=== PATIENT | female | born 1950 | race Caucasian/White ===

== ENCOUNTER 2021-01-23 06:44 | Outpatient (RCR) | payer MEDICARE, SELFPAY ==
[2015-12-30 08:40] VITALS: BMI 29.7
[2021-01-23] MEDS: COVID-19 VACC, MRNA(PFIZER)/PF 30 MCG/0.3 ML SYRINGE IM (10:16)
[2021-02-13] MEDS: COVID-19 VACC, MRNA(PFIZER)/PF 30 MCG/0.3 ML SYRINGE IM (16:04)
== END 2021-01-23 23:59 ==
LOC: IMMUN 06:44
PROVIDERS: PCP Family Medicine; Visit Provider Family Medicine
DX: Z23 Encounter for immunization (principal)
CPT/HCPCS: 0001A; 0002A; 91300

== ENCOUNTER 2022-09-15 15:30 | Outpatient (RCR) | payer MEDICARE, SELFPAY ==
--- NOTE | 2022-03-10 12:04 | HP.PTEVAL ---
Patient's Visit Information DOM BOSWELL is a 71 year old F referred to Physical Therapy by Dr. Isaac Monroe MD with a diagnosis of OA MULTIPLE SITES. Date of Evaluation: 03/10/22 Physical Therapist: Minna Turner PT, Cert MDT - Visit Plan Frequency: 2-3x /Week Duration: 4-6 Weeks Plan: AQUATIC THERAPY FOR PAIN RELIEF, POSTURE CORRECTION/STRENGTHENING, INSTRUCTION IN APPROPRIATE BODY MECHANICS AND ACTIVITY MODIFICATIONS. DLS STARTING WITH A NEUTRAL SPINE PROGRESSING ROM TOLERATED. PIA LE ROM, STRETCHING AND STRENGTHENING. HEP INSTRUCTION. - Subjective Work/Leisure: RETIRED. Disability: NO. Present symptoms: PIA ANKLE PAIN, LEFT KNEE PAIN, RIGHT HIP PAIN AND LOW BACK PAIN. PIA TOE NUMBNESS. Present since: 3-4 YEARS. Pain Scale: WORST 10/10 BRIEF LBP, LEAST 1/10. Currently: 01/01. Commenced as a result of: OA. Worse: STANDING, SITTING SOMETIMES, WALKING SHARP KNEE PAIN - I DON'T MY LEFT KNEE, THE DAY PROGRESSES. Better: SOMETIMES NOTHING, SOMETIMES SITTING HELPS OR CHANGE OF POSITION. Disturbed sleep: YES. Previous history/Previous treatment: NO SURGERY. LEFT KNEE INJECTION X 2 - DIDN'T HELP. 1-2 TREATMENTS FROM [facility] YEARS AGO - DIDN'T HELP. NO PT. Treatment this episode: PT CONSULT ORDER. COUNSELING ORDER. ORTHO CONSULT FOR KNEE. CELEBREX. GABAPENTEN. Coughing/sneezing/straining: NEGATIVE. Gait: TIME AND DISTANCE LIMITED DUE TO PAIN AND STAMINA. SOMETIMES WALKS WITH L LEG LOCKED STRAIGHT BECAUSE SHE DOESN'T TRUST IT. Difficulty initiating urination: BLADDER LEAKAGE. DENIES BOWEL DYSFUNCTION. Accidents: FELL IN NOV 2021 IN SNOW. LOST BALANCE TO THE RIGHT AND FOUGHT TO RECOVER BUT COULDN'T AND FELL IN THE SNOW. NO INJURIES BUT NEIGHBORS HAD TO HELP HER UP. FALLS ABOUT ONCE A MONTH. Unexplained weight loss: NO. Imaging: NONE. PMH/Recent major surgery: NIDDM, OA, HTN, HYPOTHYROIDISM, HIGH CHOLESTEROL. BREAST CANCER 2006 TREATED WITH LUMPECTOMY AND RADIATION THERAPY. 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 HAS BEEN IN BED AND SITTING TOO MUCH SINCE HE PAST. OTHER: I HATE WATER BUT I CAN DO WATER EXERCISE IF I NEED TO. - Objective Sitting/Standing Posture: POOR. FH. RS'S. REDUCED LORDOSIS. NO RELEVENT LATERAL SHIFT. INCREASED KYPHOSIS. Active Correction of posture: BETTER. Other Observations: INDEP GAIT INTO PT WITHOUT ANY ASSISTIVE DEVICES LIMPING ON L LE. DECREASED CADANCE. INCREASED TRUNK FLEXION. Sensory deficit: PIA LE LIGHT TOUCH SENSATION GROSSLY INTACT AND SYMMETRICAL - FEET NT. ROM deficit: TIGHT PIA LE HS'S AND GASTROC SOLEUS COMPLEX'S. RIGHT KNEE EXT -20 DEG, LEFT KNEE EXT -15 DEG. PIA KNEE FLEXION TO 130 DEG. PIA HIP FLEXION TO 110 DEG IN LYING. PIA HIP ROM INTO EXTENSION, IR AND ER IS SYMMETRICAL. Motor deficit: PIA LE'S GROSSLY 5/5 WITH MMT'ING EXCEPT HIPS 4-/5. Dural Signs: NEGATIVE PIA LE'S. Lumbar mvmt loss: flex - MIN. ext - MOD. R SG - MOD. L SG - MOD. Core strength: POOR. Palpation: NO ACUTE TENDERNESS OF LOW BACK, PELVIC OR HIP REGIONS. - Balance/Special Test Scores Lower Extremity Functional Score: 29 TUG Test Time Seconds: 15.28 30 Second Chair Rise Test Seconds: 7 - Goals Goal 1:: DECREASE C/O BACK AND PIA LE PAIN Goal Time Frame: 4-6 Weeks Goal 2:: IMPROVE STAIR CLIMBING, STANDING, WALKING AND ADL FUNCTION Goal Time Frame: 4-6 Weeks Goal 3:: PATIENT WILL BE INDEP WITH A HEP FOR CONTINUED IMRPOVEMENT ONCE FORMAL PHYSICAL THERAPY CONCLUDES Goal Time Frame: 4-6 Weeks Goal 4:: PATIENT WILL COMPLETE TUG IN < 10 SECS TO DEMONSTRATE IMPROVED GAIT STABILITY Goal 5:: PATIENT WILL COMPLETE 10 STANDS IN 30 SECS TO DEMONSTRATE IMPROVED FUNCTIONAL STRENGTH - Anticipated Interventions Patient/Client Instruction: Educate patient on: Condition, Plan of Care, Risk Factors For the Purpose of:: To improve self management Therapeutic Exercise to Include: Strength training, Body mechanics, Postural training, Flexibilty training, Gait and locomotor training, Neuromotor development, In an aquatic setting, Dynamic Lumbar Stabilization, Scapular Strength/Stabilization For the Purpose of:: To decrease pain, To improve muscle performance and motor function, To increase tolerance to activity/condition/position, To improve ability of physical actions for home/community/work/leisure, To improve gait and locomotor functions Thank you for the opportunity to evaluate your patient. For Medicare and Medicare HMO plans, please review the plan of care and approve it. It will need to be FAXED BACK to us at [phone] for Medicare purposes. For Medicare only, by signing this I certify the plan of care. Please let me know if there are questions or concerns regarding this plan of care. Physician Signature: Date:
--- NOTE | 2022-04-08 11:41 | HP.PTREVAL_ITS ---
Dr. Isaac Holden MD, It has been my pleasure to treat DOM BOSWELL over the last 10 visits for OA MULTIPLE SITES. Please see the progress note below for an update on the physical therapy plan of care! Subjective: PATIENT REPORTS SHE IS GETTING BETTER. ABLE TO UNDERSTAND HOW TO USE HER ABDOMINALS BETTER SINCE STARTING POOL THERAPY. ALSO REPORTS LEFT FOOT ISN'T TURNING OUT MUCH AND IT IS EASIER TO AVOID TURNING IT OUT. PATIENT REPORTS SHE CAN GO UP AND DOWN HER STEPS AT HOME (WHICH SHE DOES ABOUT ONCE A WEEK) BETTER. REPORTS IT IS STILL DIFFICULT BUT BETTER SINCE STARTING AQUATIC THERAPY. STATES SHE WAS DOING BETTER THAN BEFORE THE FALL LAST WEDNESDAY. ALSO REPORTS HELPING A NEIGHBOR MOVE, MOWING, TRYING STEPS IN THE POOL AND OTHER A CTIVITIES THAT LEAD TO 7-8/10 BACK PAIN LAST WEDNESDAY AND WEDNESDAY. PATIENT REPORTS FOLLOW UP WITH DR. HOLDEN LAST WEEK AFTER FALL. SHE REPORTS HE INCREASED HER MEDICINE THAT HELPS HER FALL ASLEEP AND RECOMMENDED CONTINUED PT. (FELL TUMBLED ON THE AND SAW DR. HOLDEN ON THE ). Objective/Function: PATIENT WAS SEEN TODAY FOR RE-ASSESSMENT OF PROGRESS TOWARD THE SET PT GOALS AND THE NEED FOR FURTHER PHYSICAL THERAPY VS READINESS FOR DISCHARGE. PATIENT IS IMPOVING SLOWLY. SHE CONTINUES TO HAVE POOR CORE STRENGTH EFFECTING LE FUNCTION BUT SHE IS GETTING STRONGER AND MAKING PROGRESS TOWARD BECOMING INDEP WITH A WATER EX PROGRAM HOWEVER CONTINUES TO REQUIRE SIGNIFCANT THERAPIST CUEING. SHE IS A GOOD CANDIDATE TO CONTINUE SKILLED AQUATIC THERAPY AND SHE IS AGREEABLE. UPON EXAM TODAY: PATIENT DEMO'S INDEP GAIT INTO PT WITHOUT ANY ASSISTIVE DEVICES MILDLY LIMPING ON L LE. DECREASED CADANCE. INCREASED TRUNK FLEXION. PATIENT IS ABLE TO TRANSFER FROM SIT TO STAND WITH ONE UE ASSIST NOW COMPARED TO TWO UE'S AT INITIAL EVAL BUT IT IS DIFFICULT. Sensory deficit: PIA LE LIGHT TOUCH SENSATION GROSSLY INTACT AND SYMMETRICAL - FEET NT. Motor deficit: PIA LE'S GROSSLY 5/5 WITH MMT'ING EXCEPT HIPS 4-/5. Dural Signs: NEGATIVE PIA LE'S. Lumbar mvmt loss: flex - MIN. ext - MOD. R SG - MOD. L SG - MOD. PATIENT C/O INCREASED LBP DURING LUMBAR ROM TESTING ALL PLANES BUT RESOLVED WHEN STOPPED. Core strength: POOR. Palpation: NO ACUTE TENDERNESS OF LOW BACK, KNEE, PELVIC OR HIP REGIONS. Plan Plan: CONTINUE AQUATIC THERAPY 2X'S A WK X 10 MORE VISITS FOR PAIN RELIEF, POSTURE CORRECTION/STRENGTHENING, INSTRUCTION IN APPROPRIATE BODY MECHANICS AND ACTIVITY MODIFICATIONS. DLS STARTING WITH A NEUTRAL SPINE PROGRESSING ROM TOLERATED. PIA LE ROM, STRETCHING AND STRENGTHENING. HEP INSTRUCTION. Balance/Gait/Functional tests - Balance/Special Test Scores Oswestry Low Back Score: 20 Lower Extremity Functional Score: 29 TUG Test Time Seconds: 15.28 Tug Test: 20-30sec.=variable mobility 30 Second Chair Rise Test Seconds: 7 Goals Goal 1:: DECREASE C/O BACK AND PIA LE PAIN Goal Time Frame: 4-6 Weeks Goal Progress: Progressing Goal 2:: IMPROVE STAIR CLIMBING, STANDING, WALKING AND ADL FUNCTION Goal Time Frame: 4-6 Weeks Goal Progress: Progressing Goal 3:: PATIENT WILL BE INDEP WITH A HEP FOR CONTINUED IMRPOVEMENT ONCE FORMAL PHYSICAL THERAPY CONCLUDES Goal Time Frame: 4-6 Weeks Goal Progress: Progressing Goal 4:: PATIENT WILL COMPLETE TUG IN < 10 SECS TO DEMONSTRATE IMPROVED GAIT STABILITY Goal 5:: PATIENT WILL COMPLETE 10 STANDS IN 30 SECS TO DEMONSTRATE IMPROVED FUNCTIONAL STRENGTH Anticipated Interventions Patient/Client Instruction: Educate patient on: Condition, Plan of Care, Risk Factors For the Purpose of:: To improve self management Therapeutic Exercise to Include: Strength training, Body mechanics, Postural training, Flexibilty training, Gait and locomotor training, Neuromotor development, In an aquatic setting, Dynamic Lumbar Stabilization, Scapular Strength/Stabilization For the Purpose of:: To decrease pain, To improve muscle performance and motor function, To increase tolerance to activity/condition/position, To improve ability of physical actions for home/community/work/leisure, To improve gait and locomotor functions Please do not hesitate to contact me at [phone] by phone or Fax: if you have questions or concerns regarding this new plan of care! Sincerely, Minna Turner, PT, Cert MDT
--- NOTE | 2022-05-29 14:57 | HP.PTREVAL ---
Dr. Isaac Monroe MD, It has been my pleasure to treat DOM BOSWELL over the last 20 visits for OA MULTIPLE SITES. Please see the progress note below for an update on the physical therapy plan of care! Subjective: PATIENT REPORTS SHE IS GETTING BETTER AND FEELS LIKE SHE NEEDS MORE THERAPY. STANDING UP FROM A CHAIR AND GOING UP STAIRS IS STILL CHALLENGING. REPORTS DOING TOO MUCH WALKING, LIFTING AND STOOPING TO CLEAN BASEMENT OUT FOR NEW FURNITURE YESTERDAY. PATIENT REPORTS SHE IS ABLE TO GO UP STEPS BETTER - NOT DEPENDENT ON HR. WHEN I'M LOSING BALANCE I CAN CORRECT BETTER NOW AND I DIDN'T HAVE THAT ABILITY BEFORE. SHE REPORTS REACHING OVER AND GETTING THINGS IS BETTER BUT STANDING HAS NOT IMPROVED MUCH. REPORTS IT IS STILL HARD FOR HER TO GET CORRECT POSTURE IN THE POOL WITH EX'S. Objective/Function: PATIENT WAS SEEN TODAY FOR RE-ASSESSMENT OF PROGRESS TOWARD THE SET PT GOALS AND THE NEED FOR FURTHER PHYSICAL THERAPY VS READINESS FOR DISCHARGE. PATIENT HAS MADE SIGNIFICANT PROGRESS SINCE LAST RE-CHECK BUT IS NOT INDEP WITH PROPER EX TECHNIQUE YET ALTHOUGH BECOMING MORE CONFIDENT. SHE MAY ALSO BENEFIT FROM/TOLERATE CONTINUED SKILLED PT FOR FURTHER EX PROGRESSION SHE STARTS TO TRANSITION TO INDEP EX. SHE CONTINUES TO HAVE POOR CORE STRENGTH EFFECTING LE FUNCTION BUT SHE IS GETTING STRONGER AND MAKING PROGRESS TOWARD BECOMING INDEP WITH A WATER EX PROGRAM SHE IS AGREEABLE. UPON EXAM TODAY: PATIENT DEMO'S INDEP GAIT INTO PT WITHOUT ANY ASSISTIVE DEVICES MILDLY LIMPING ON L LE. DECREASED CADANCE. INCREASED TRUNK FLEXION. PATIENT IS ABLE TO TRANSFER FROM SIT TO STAND WITHOUT UE ASSIST NOW COMPARED TO TWO UE'S AT INITIAL EVAL AND ONE UE AT LAST RE-CHECK. Sensory deficit: PIA LE LIGHT TOUCH SENSATION GROSSLY INTACT AND SYMMETRICAL - FEET NT. Motor deficit: PIA LE'S GROSSLY 5/5 WITH MMT'ING EXCEPT HIPS 4/5. Dural Signs: NEGATIVE PIA LE'S. Lumbar mvmt loss: flex - MIN. ext - MOD. R SG - MOD. L SG - MOD. PATIENT REPORTS INCREASED LBP WITH LUMBAR PIA SG TESTING BUT NOT FLEX AND EXTENSION. Core strength: POOR. Palpation: NO ACUTE TENDERNESS OF LOW BACK, KNEE, PELVIC OR HIP REGIONS. [ End ] Plan Plan: CONTINUE AQUATIC THERAPY 2X'S A WEEK X 4 WKS WITH PATIENT STARTING ONE TIME A WEEK INDEP'LY. PATIENT IS AGREEABLE. Balance/Gait/Functional tests - Balance/Special Test Scores Oswestry Low Back Score: 19 Lower Extremity Functional Score: 31 TUG Test Time Seconds: 11.27 Tug Test: 20-30sec.=variable mobility 30 Second Chair Rise Test Seconds: 6 Goals Goal 1:: DECREASE C/O BACK AND PIA LE PAIN Goal Time Frame: 4-6 Weeks Goal Progress: Progressing Goal 2:: IMPROVE STAIR CLIMBING, STANDING, WALKING AND ADL FUNCTION Goal Time Frame: 4-6 Weeks Goal Progress: Progressing Goal 3:: PATIENT WILL BE INDEP WITH A HEP FOR CONTINUED IMRPOVEMENT ONCE FORMAL PHYSICAL THERAPY CONCLUDES Goal Time Frame: 4-6 Weeks Goal Progress: Progressing Goal 4:: PATIENT WILL COMPLETE TUG IN < 10 SECS TO DEMONSTRATE IMPROVED GAIT STABILITY Goal Progress: Progressing Goal 5:: PATIENT WILL COMPLETE 10 STANDS IN 30 SECS TO DEMONSTRATE IMPROVED FUNCTIONAL STRENGTH Goal Progress: Progressing Anticipated Interventions Patient/Client Instruction: Educate patient on: Condition, Plan of Care, Risk Factors For the Purpose of:: To improve self management Therapeutic Exercise to Include: Strength training, Body mechanics, Postural training, Flexibilty training, Gait and locomotor training, Neuromotor development, In an aquatic setting, Dynamic Lumbar Stabilization, Scapular Strength/Stabilization For the Purpose of:: To decrease pain, To improve muscle performance and motor function, To increase tolerance to activity/condition/position, To improve ability of physical actions for home/community/work/leisure, To improve gait and locomotor functions Please do not hesitate to contact me at [phone] by phone or if you have questions or concerns regarding this new plan of care! Sincerely, Minna Turner, PT, Cert MDT
--- NOTE | 2022-07-09 13:59 | HP.PTREVAL_ITS ---
Dr. Isaac Mnoroe MD, It has been my pleasure to treat DOM BOSWELL over the last 28 visits for OA MULTIPLE SITES. Please see the progress note below for an update on the physical therapy plan of care! Subjective: PATIENT REPORTS SHE FELL WEDNESDAY CLEANING THE BATHROOM. DIFFICULTY GETTING UP BUT EVENTUALLY GOT HERSELF UP. DENIES NEED FOR MEDICAL EXAM. DENIES SERIOUS INJURY. STATES SHE IS JUST BRUISED. PATIENT REPORTS SHE HAS COME TWO TIMES ON HER OWN TO WATER EX BUT SHE IS NOT SURE SHE WILL CONTINUE. PATIENT REPORTS GETTING UP FROM A CHAIR HAS DEFINATELY IMPROVED SINCE STARTING PT. Objective/Function: PATIENT WAS SEEN TODAY FOR RE-ASSESSMENT OF PROGRESS TOWARD THE SET PT GOALS AND THE NEED FOR FURTHER PHYSICAL THERAPY VS READINESS FOR DISCHARGE. PATIENT IS A GOOD CANDIDATE TO CONTINUE AQUATIC THERAPY AND SHE IS AGREEABLE. SHE HAD A SET BACK WITH HER FALL BUT TESTED BETTER WITH TUG TIME AND STS TEST COMPARED TO INITIAL EVAL. UPON EXAM TODAY: PATIENT DEMO'S INDEP GAIT INTO PT WITHOUT ANY ASSISTIVE DEVICES LIMPING ON L LE. DECREASED CADANCE. INCREASED TRUNK FLEXION. Motor deficit: PIA LE'S GROSSLY 5/5 WITH MMT'ING EXCEPT HIPS 4/5. ROM: PIA KNEE ROM -5 DEG EXT TO 125 DEG FLEXION WITH ERP LLE. Dural Signs: NEGATIVE PIA LE'S. Lumbar mvmt loss: flex - NIL. ext - MOD. R SG - MOD. L SG - MOD. PATIENT REPORTS. Core strength: POOR. Palpation: NO ACUTE TENDERNESS OF L KNEE. ALSO DENIES TENDERNESS WITH BACK AND HIP PALPATION. [ End ] Plan Plan: CONTINUE AQUATIC THERAPY 2X'S A WEEK X 4 WKS WITH PATIENT STARTING ONE TIME A WEEK INDEP'LY. PATIENT IS AGREEABLE. Balance/Gait/Functional tests - Balance/Special Test Scores Oswestry Low Back Score: 22 Lower Extremity Functional Score: 33 TUG Test Time Seconds: 10.97 Tug Test: 20-30sec.=variable mobility 30 Second Chair Rise Test Seconds: 7 Goals Goal 1:: DECREASE C/O BACK AND PIA LE PAIN Goal Time Frame: 4-6 Weeks Goal Progress: Progressing Goal 2:: IMPROVE STAIR CLIMBING, STANDING, WALKING AND ADL FUNCTION Goal Time Frame: 4-6 Weeks Goal Progress: Progressing Goal 3:: PATIENT WILL BE INDEP WITH A HEP FOR CONTINUED IMRPOVEMENT ONCE FORMAL PHYSICAL THERAPY CONCLUDES Goal Time Frame: 4-6 Weeks Goal Progress: Progressing Goal 4:: PATIENT WILL COMPLETE TUG IN < 10 SECS TO DEMONSTRATE IMPROVED GAIT STABILITY Goal Progress: Progressing Goal 5:: PATIENT WILL COMPLETE 10 STANDS IN 30 SECS TO DEMONSTRATE IMPROVED FUN CTIONAL STRENGTH Goal Progress: Progressing Anticipated Interventions Patient/Client Instruction: Educate patient on: Condition, Plan of Care, Risk Factors For the Purpose of:: To improve self management Therapeutic Exercise to Include: Strength training, Body mechanics, Postural tra ining, Flexibilty training, Gait and locomotor training, Neuromotor development, In an aquatic setting, Dynamic Lumbar Stabilization, Scapular Strength/Stabilization For the Purpose of:: To decrease pain, To improve muscle performance and motor function, To increase tolerance to activity/condition/position, To improve ability of physical actions for home/community/work/leisure, To improve gait and locomotor functions Please do not hesitate to contact me at [phone] by phone or if you have questions or concerns regarding this new plan of care! Sincerely, Minna Turner, PT, Cert MDT
--- NOTE | 2022-08-27 14:09 | HP.PTREVAL ---
Dr. Isaac Monroe MD, It has been my pleasure to treat DOM BOSWELL over the last 38 visits for OA MULTIPLE SITES. Please see the progress note below for an update on the physical therapy plan of care! Subjective: PATIENT REPROTS THAT GOING UP AND DOWN STEPS IS MUCH BETTER. SHE REPROTS SHE CAN SOMETIMES GO UP STEP OVER STEP NOW WITH A HANDRAIL. CAN SOMETIMES GO UP ONE STEP AT A TIME WITHOUT ANY HANDRAIL. SHE REPORTS HER L KNEE PAIN AND RIGHT HIP PAIN ARE BETTER TOO. PATIENT REPORTS GENERAL ARM SORENESS FROM NEW EX'S LAST VISIT BUT NOT PAIN. MY BALANCE HAS DEFINATELY IMPROVED. Objective/Function: PATIENT WAS SEEN TODAY FOR RE-ASSESSMENT OF PROGRESS TOWARD THE SET PT GOALS AND THE NEED FOR FURTHER PHYSICAL THERAPY VS READINESS FOR DISCHARGE. PATIENT IS A GOOD CANDIDATE TO TRY TO PROGRESS TO LAND PT AT THIS TIME BASED ON PROGRESS MADE AND ROOM FOR FURTHER IMRPOVEMENT. PATIENT IS AGREEABLE. UPON EXAM TODAY: PATIENT DEMO'S INDEP GAIT INTO PT WITHOUT ANY ASSISTIVE DEVICES AND NO LIMP ON THE L LE TODAY. DECREASED CADANCE. INCREASED TRUNK FLEXION. Motor deficit: PIA LE'S GROSSLY 5/5. ROM: R KNEE ROM -5 DEG EXT TO 134 DEG FLEXION. L KNEE ROM -3 DEG EXT TO 135 DEG. Lumbar mvmt loss: flex - NIL. ext - MOD. R SG - MOD. L SG - MOD. PATIENT DENIES INCREASED LBP WITH LUMBAR ROM TESTING ALL PLANES TODAY. Core strength: POOR Plan Plan: TRANSITION TO LAND PT FOR POSTURE CORRECTION/STRENGTHENING, INSTRUCTION IN APPROPRIATE BODY MECHANICS AND ACTIVITY MODIFICATIONS. DLS STARTING WITH A NEUTRAL SPINE PROGRESSING ROM TOLERATED. PIA LE ROM, STRETCHING AND STRENGTHENING. HEP INSTRUCTION. Balance/Gait/Functional tests - Balance/Special Test Scores Oswestry Low Back Score: 18 Lower Extremity Functional Score: 43 TUG Test Time Seconds: 8.80 Tug Test: <10 sec.=free mobile 30 Second Chair Rise Test Seconds: 8 Goals Goal 1:: DECREASE C/O BACK AND PIA LE PAIN Goal Time Frame: 4-6 Weeks Goal Progress: Progressing Goal 2:: IMPROVE STAIR CLIMBING, STANDING, WALKING AND ADL FUNCTION Goal Time Frame: 4-6 Weeks Goal Progress: Progressing Goal 3:: PATIENT WILL BE INDEP WITH A HEP FOR CONTINUED IMRPOVEMENT ONCE FORMAL PHYSICAL THERAPY CONCLUDES Goal Time Frame: 4-6 Weeks Goal Progress: Progressing Goal 4:: PATIENT WILL COMPLETE TUG IN < 10 SECS TO DEMONSTRATE IMPROVED GAIT STABILITY Goal Progress: Progressing Goal 5:: PATIENT WILL COMPLETE 10 STANDS IN 30 SECS TO DEMONSTRATE IMPROVED FUNCTIONAL STRENGTH Goal Progress: Progressing Anticipated Interventions Patient/Client Instruction: Educate patient on: Condition, Plan of Care, Risk Factors For the Purpose of:: To improve self management Therapeutic Exercise to Include: Strength training, Body mechanics, Postural training, Flexibilty training, Gait and locomotor training, Neuromotor development, In an aquatic setting, Dynamic Lumbar Stabilization, Scapular Strength/Stabilization For the Purpose of:: To decrease pain, To improve muscle performance and motor function, To increase tolerance to activity/condition/position, To improve ability of physical actions for home/community/work/leisure, To improve gait and locomotor functions Please do not hesitate to contact me at [phone] by phone or if you have questions or concerns regarding this new plan of care! Sincerely, Minna Turner, PT, Cert MDT
== END 2022-09-15 19:00 | disposition home or self-care (01) ==
LOC: PT 15:30
PROVIDERS: PCP Family Medicine; Referring Provider Family Medicine; Visit Provider Family Medicine
DX: M15.9 Polyosteoarthritis, unspecified (principal)
CPT/HCPCS: 97110; 97113; 97162; 97164

== ENCOUNTER 2022-09-24 13:30 | Outpatient (RCR) | payer MEDICARE, SELFPAY ==
--- NOTE | 2022-09-24 14:13 | HP.PTDCSUM ---
It has been my pleasure to treat DOM BOSWELL referred by Dr. Isaac Monroe MD, with the diagnosis of for a total of 46 visit(s). Discharge Date: Please see the following information for a summary of their discharge status. Subjective: PATIENT REPORTS HER BALANCE IS BETTER. MY STRENGTH IN MY LEGS AND CORE IS DEFINATELY BETTER. STAIRS ARE BETTER. % Improvement: 80 Objective/Function: PATIENT WAS SEEN TODAY FOR RE-ASSESSMENT OF PROGRESS TOWARD THE SET PT GOALS AND THE NEED FOR FURTHER PHYSICAL THERAPY VS READINESS FOR DISCHARGE. PATIENT IS A GOOD CANDIDATE TO TRY TO PROGRESS TO LAND PT AT THIS TIME BASED ON PROGRESS MADE AND ROOM FOR FURTHER IMRPOVEMENT. ALL GOALS HAVE BEEN MET EXCEPT TESTING 9 STS VS 10 IN 30 TEST TODAY. (SEE PRIOR V# FOR GOALS). PATIENT IS INDEP WITH A LAND EX PROGRAM AND IS SET UP WITH [employer]. SHE ASKED FOR EX'S FOR HER HIP FLEXORS AND THIS PT INSTRUCTED HER IN HOME SLR'S WORKING UP TO 2X15 EA AND PROGRESSING WITH ANKLE WEIGHTS ONE POUND AT A TIME TOLERATED. 1X10 EA SLR 'S TODAY WITHOUT DIFFICULTY. PATIENT IS APPROPRIATE FOR AND AGREEABLE TO D/C. PATIENT DEMO'D INDEP AND SAFE GAIT INTO PT TODAY WITH GOOD CADANCE AND WITHOUT AD X APPROX 300 FEET. ABLE TO TRANSFER INDEP'LY SIT TO STAND WITHOUT UE ASSIST X 9 IN 30 SEC. Plan: D/C TO INDEP EX PROGRAM. PATIENT AGREEABLE. If there are questions or concerns regarding this patient's physical therapy, please feel free to call me at [phone]. Thank you for the referral of this patient. Sincerely, Minna Turner, PT, Cert MDT Balance/Gait/Functional tests - Balance/Special Test Scores Oswestry Low Back Score: 20 Lower Extremity Functional Score: 42 TUG Test Time Seconds: 8.11 Tug Test: <10 sec.=free mobile 30 Second Chair Rise Test Seconds: 9
== END 2022-09-24 19:00 | disposition home or self-care (01) ==
LOC: PT 13:30
PROVIDERS: PCP Family Medicine; Referring Provider Family Medicine; Visit Provider Family Medicine
DX: M15.9 Polyosteoarthritis, unspecified (principal)
CPT/HCPCS: 97110; 97164

== ENCOUNTER 2024-03-17 14:00 | Outpatient (RCR) | payer MEDICARE, SELFPAY ==
--- NOTE | 2023-12-13 15:28 | HP.PTEVAL_ITS ---
Patient's Visit Information Visit Information Visit Information: DOM BOSWELL is a 73 year old F referred to Physical Therapy by Dr. Twan Man DO with a diagnosis of L shoulder pain. Date of Evaluation: 12/13/23 Physical Therapist: PATRICIA Billingsley Visit Plan Frequency: 2x /Week Duration: 2 Months Plan: Probable impingement due to rounded shoulder posture 2X/ week for 8 weeks for scapular strength, postural exercises, AAROM, AROM, RC strength with HEP. HEP: shoulder blade squeezes and seated with towel long ways in recliner for pec stretch and better posture Subjective Subjective: Pt has L shoulder pain now. Her L shoulder will not go back ( can't reach back to get her seatbelt) or straight up over her head at a certain point. It just started to hurt. She tends to sleep on that side and wakes up in the middle of the night cause it hurts so bad. She is R handed. She always wake up on the L side in pain. Taking a t-shirt off has been problematic. She wishes that her L arm did not hurt. They did not take an x-ray. She has no N&T. She does have some neck pain up to her ear and L jaw but they did a test and it is not cardiac. Pt was just taken off celebrex that she has been on it for decades due to the side effects. Pain L shoulder pain: Pain Intensity (Out of 10): 4 Objective Objective: R handed: R 48# and L 45# L shoulder AROM: R shoulder Flex 149 and L 92 R shoulder ABD 175 and L 80 R shoulder ER 60 and L 22 R shoulder IR T6 and L1 on the L UE MMT: R shoulder flex 8.3 and L 5.3 R shoulder ABD 10.3 and L 3.8 R shoulder ER 10.1 and L 6.4 R shoulder IR 9.1 and L 8,7 L bicep 4/5 + HK for pain for impingement on the L. + empty can test on the L for pain and weakness. Palpation of the L shoulder under the acromion and that was painful on the L. Balance/Special Test Scores Quick DASH Score: 34.0900 Goals Goal 1:: I HEP Goal Time Frame: 6-8 Weeks Goal 2:: Increase L shoulder AROM (At time of the eval: L shoulder AROM: R shoulder Flex 149 and L 92 R shoulder ABD 175 and L 80 R shoulder ER 60 and L 22 R shoulder IR T6 and L1 on the L) Goal Time Frame: 6-8 Weeks Goal 3:: Increase L shoulder strength (at time of the eval: UE MMT: R shoulder flex 8.3 and L 5.3 R shoulder ABD 10.3 and L 3.8 R shoulder ER 10.1 and L 6.4 R shoulder IR 9.1 and L 8,7) Goal Time Frame: 6-8 Weeks Goal 4:: sit with upright posture during treatment sessions Goal Time Frame: 6-8 Weeks Goal 5:: Be able to sleep through the night without L shoulder pain Goal Time Frame: 6-8 Weeks Rehabilitation Potential Rehabilitation Potential: Good Anticipated Interventions Patient/Client Instruction: Educate patient on: Condition and Plan of Care For the Purpose of:: To decrease pain, To decrease swelling/inflammation, To increase ROM, To improve nutrient delivery to tissue, To improve muscle performance and motor function, To improve ability to perform ADL's, To increase tolerance to activity/condition/position, To improve performance and independence with ADL's, To decrease level of supervision to perform tasks, To improve ability of physical actions for home/community/work/leisure, To improve gait and locomotor functions, To improve health of tissue, To decrease soft tissue restriction and To increase flexibility/ROM Therapeutic Exercise to Include: Strength training, Postural training, Flexibilty training, Neuromotor development, Passive ROM, Active ROM, Dynamic Lumbar Stabilization and Scapular Strength/Stabilization For the Purpose of:: To decrease pain, To decrease swelling/inflammation, To increase ROM, To improve nutrient delivery to tissue, To improve muscle performance and motor function, To improve performance and independence with ADL's, To decrease level of supervision to perform tasks, To improve ability of physical actions for home/community/work/leisure, To improve health of tissue and To increase flexibility/ROM Manual Therapy Techniques to Include: Passive ROM and Soft tissue mobilization For the Purpose of:: To decrease pain, To decrease swelling/inflammation, To increase ROM, To improve nutrient delivery to tissue, To improve muscle performance and motor function and To improve ability to perform ADL's Text: Thank you for the opportunity to evaluate your patient. For Medicare and Medicare HMO plans, please review the plan of care and approve it. It will need to be FAXED BACK to us at [phone] for Medicare purposes. For Medicare only, by signing this I certify the plan of care. Please let me know if there are questions or concerns regarding this plan of care. Physician Signature: Date:
--- NOTE | 2024-01-12 16:17 | HP.PTREVAL ---
Re-Evaluation Intro: Dr. Twan Man, DO, It has been my pleasure to treat DOM BOSWELL over the last 9 visits for L shoulder pain. Please see the progress note below for an update on the physical therapy plan of care! Subjective Subjective: Pt was taken off her pain meds prior to PT and so now her pain is back all over her body. She feels her ROM is better but not the pain. She can now put on her seatbelt with some pain. She has FM and arthritis and hurting is an everyday thing in her life. She just bought Volter[employer]. Objective Objective/Function: L shoulder AROM: R shoulder Flex 149 and L 132 R shoulder ABD 175 and L 151 R shoulder ER 60 and L 30 R shoulder IR T6 and T12on the L UE MMT: R shoulder flex 8.3 and L 6.7 R shoulder ABD 10.3 and L 7.2 R shoulder ER 10.1 and L 10.5 R shoulder IR 9.1 and L 9.9 Plan Plan Plan: 01/03:add SH JARRETT to HEP. Probable impingement due to rounded shoulder posture 2X/ week for 8 weeks for scapular strength postural exercises, AAROM, AROM, RC strength with HEP. Balance/Gait/Functional tests Balance/Special Test Scores Quick DASH Score: 25.0000 Goals Goals Goal 1:: I HEP Goal Time Frame: 6-8 Weeks Goal Progress: Progressing Goal 2:: Increase L shoulder AROM (At time of the eval: L shoulder AROM: R shoulder Flex 149 and L 92 R shoulder ABD 175 and L 80 R shoulder ER 60 and L 22 R shoulder IR T6 and L1 on the L) Goal Time Frame: 6-8 Weeks Goal 3:: Increase L shoulder strength (at time of the eval: UE MMT: R shoulder flex 8.3 and L 5.3 R shoulder ABD 10.3 and L 3.8 R shoulder ER 10.1 and L 6.4 R shoulder IR 9.1 and L 8,7) Goal Time Frame: 6-8 Weeks Goal 4:: sit with upright posture during treatment sessions Goal Time Frame: 6-8 Weeks Goal 5:: Be able to sleep through the night without L shoulder pain Goal Time Frame: 6-8 Weeks Anticipated Interventions Anticipated Interventions Patient/Client Instruction: Educate patient on: Condition and Plan of Care For the Purpose of:: To decrease pain, To decrease swelling/inflammation, To increase ROM, To improve nutrient delivery to tissue, To improve muscle performance and motor function, To improve ability to perform ADL's, To increase tolerance to activity/condition/position, To improve performance and independence with ADL's, To decrease level of supervision to perform tasks, To improve ability of physical actions for home/community/work/leisure, To improve gait and locomotor functions, To improve health of tissue, To decrease soft tissue restriction and To increase flexibility/ROM Therapeutic Exercise to Include: Strength training, Postural training, Flexibilty training, Neuromotor development, Passive ROM, Active ROM, Dynamic Lumbar Stabilization and Scapular Strength/Stabilization For the Purpose of:: To decrease pain, To decrease swelling/inflammation, To increase ROM, To improve nutrient delivery to tissue, To improve muscle performance and motor function, To improve performance and independence with ADL's, To decrease level of supervision to perform tasks, To improve ability of physical actions for home/community/work/leisure, To improve health of tissue and To increase flexibility/ROM Manual Therapy Techniques to Include: Passive ROM and Soft tissue mobilization For the Purpose of:: To decrease pain, To decrease swelling/inflammation, To increase ROM, To improve nutrient delivery to tissue, To improve muscle performance and motor function and To improve ability to perform ADL's Re-Evaluation Ending Re-evaluation ending: Please do not hesitate to contact me at [phone] by phone or if you have questions or concerns regarding this new plan of care! Sincerely, PATRICIA Billingsley
--- NOTE | 2024-02-21 16:25 | HP.PTREVAL ---
Re-Evaluation Intro: Dr. Twan Man, DO, It has been my pleasure to treat DOM BOSWELL over the last 17 visits for L shoulder pain. Please see the progress note below for an update on the physical therapy plan of care! Subjective Subjective: She feels that her ROM has increased. She is not sure better pain [place] but the Dr took the pain meds away and now she has pain everywhere. She has been taking celebrex for years now and she takes Tylenol but now she is in constant pain. She feels that her L shoulder is still weak. She is still sore but we are increasing the color of the band the weight. She sees her Dr otf and they will discuss it otf. She could not reach out of the drive through window to give the girl the money or reach for the food Objective Objective/Function: Improved overall ROM and strength UE MMT: R shoulder flex 8.3 and L 7.4 R shoulder ABD 10.3 and L 7.4 R shoulder ER 10.1 and L 7.5 R shoulder IR 9.1 and L 9.8 L shoulder AROM: R shoulder Flex 149 and L 92 R shoulder ABD 175 and L 120 R shoulder ER 60 and L 50 R shoulder IR T6 and T8 on the L) Plan Plan Plan: Focus on being able to reach out to the side as like giving money through a drive through. 2X/ week for 3 more weeks while pt talks to her Dr about her overall pain, not eating and not sleeping. 2X/ week for 8 weeks for scapular strength postural exercises, AAROM, AROM, RC strength with HEP. Balance/Gait/Functional tests Balance/Special Test Scores Quick DASH Score: 34.0900 Goals Goals Goal 1:: I HEP Goal Time Frame: 6-8 Weeks Goal Progress: Progressing Goal 2:: Increase L shoulder AROM (At time of the eval: L shoulder AROM: R shoulder Flex 149 and L 92 R shoulder ABD 175 and L 80 R shoulder ER 60 and L 22 R shoulder IR T6 and L1 on the L) Goal Time Frame: 6-8 Weeks Goal Progress: Progressing Goal 3:: Increase L shoulder strength (at time of the eval: UE MMT: R shoulder flex 8.3 and L 5.3 R shoulder ABD 10.3 and L 3.8 R shoulder ER 10.1 and L 6.4 R shoulder IR 9.1 and L 8,7) Goal Time Frame: 6-8 Weeks Goal Progress: Progressing Goal 4:: sit with upright posture during treatment sessions Goal Time Frame: 6-8 Weeks Goal Progress: Not Progressing Goal 5:: Be able to sleep through the night without L shoulder pain Goal Time Frame: 6-8 Weeks Goal Progress: Not Progressing Goal 6:: Pt will be able to give the money at the drive through window and take the food with her L hand Goal Time Frame: 6-8 Weeks Anticipated Interventions Anticipated Interventions Patient/Client Instruction: Educate patient on: Condition and Plan of Care For the Purpose of:: To decrease pain, To decrease swelling/inflammation, To increase ROM, To improve nutrient delivery to tissue, To improve muscle performance and motor function, To improve ability to perform ADL's, To increase tolerance to activity/condition/position, To improve performance and independence with ADL's, To decrease level of supervision to perform tasks, To improve ability of physical actions for home/community/work/leisure, To improve gait and locomotor functions, To improve health of tissue, To decrease soft tissue restriction and To increase flexibility/ROM Therapeutic Exercise to Include: Strength training, Postural training, Flexibilty training, Neuromotor development, Passive ROM, Active ROM, Dynamic Lumbar Stabilization and Scapular Strength/Stabilization For the Purpose of:: To decrease pain, To decrease swelling/inflammation, To increase ROM, To improve nutrient delivery to tissue, To improve muscle performance and motor function, To improve performance and independence with ADL's, To decrease level of supervision to perform tasks, To improve ability of physical actions for home/community/work/leisure, To improve health of tissue and To increase flexibility/ROM Manual Therapy Techniques to Include: Passive ROM and Soft tissue mobilization For the Purpose of:: To decrease pain, To decrease swelling/inflammation, To increase ROM, To improve nutrient delivery to tissue, To improve muscle performance and motor function and To improve ability to perform ADL's Re-Evaluation Ending Re-evaluation ending: Please do not hesitate to contact me at [phone] by phone or if you have questions or concerns regarding this new plan of care! Sincerely, Nori Martinez, MPT
--- NOTE | 2024-03-17 14:39 | HP.PTDCSUM ---
Discharge Summary D/C summary: It has been my pleasure to treat DOM BOSWELL referred by Dr. Twan Man DO, with the diagnosis of L shoulder pain for a total of 24 visit(s). Discharge Date: Please see the following information for a summary of their discharge status. Subjective Subjective: Pt feels comfortable doing the exercises out in the gym but coming here is another issue. Pt has a copy of her exercises. Pt ROM is improving and so is strength but pain remains an issue as does pain all over her body. Pain L shoulder pain: Pain Intensity (Out of 10): 2 knees: Pain Intensity (Out of 10): 3 hips: Pain Intensity (Out of 10): 2 ankles: Pain Intensity (Out of 10): 1 thumb: Pain Intensity (Out of 10): 1 Overall Improvement % Improvement: 80 Objective Objective/Function: L shoulder AROM: R shoulder Flex 149 and L 135 R shoulder ABD 175 and L 130 R shoulder ER 60 and L 31 R shoulder IR T6 and T12 UE MMT: R shoulder flex 8.3 and L 5.9 R shoulder ABD 10.3 and L 5.8 R shoulder ER 10.1 and L 8.3 R shoulder IR 9.1 and L 10.6 Goals Goal 1:: I HEP Goal Progress: Progressing Goal 2:: Increase L shoulder AROM (At time of the eval: L shoulder AROM: R shoulder Flex 149 and L 92 R shoulder ABD 175 and L 80 R shoulder ER 60 and L 22 R shoulder IR T6 and L1 on the L) Goal Progress: Goal Met Goal 3:: Increase L shoulder strength (at time of the eval: UE MMT: R shoulder flex 8.3 and L 5.3 R shoulder ABD 10.3 and L 3.8 R shoulder ER 10.1 and L 6.4 R shoulder IR 9.1 and L 8,7) Goal Progress: Goal Met Goal 4:: sit with upright posture during treatment sessions Goal Progress: Progressing Goal 5:: Be able to sleep through the night without L shoulder pain Goal Progress: Not Progressing Goal 6:: Pt will be able to give the money at the drive through window and take the food with her L hand Goal Progress: Progressing Plan Plan: Dc PT to indep gym routine D/C Information d/c sentence: If there are questions or concerns regarding this patient's physical therapy, please feel free to call me at [phone]. Thank you for the referral of this patient. Sincerely, Nori Martinez, MPT Balance/Gait/Functional tests Balance/Special Test Scores Quick DASH Score: 34.0900 Improvement % Improvement: 80
== END 2024-03-17 19:00 | disposition home or self-care (01) ==
LOC: PT 14:00
DX: M25.512 Pain in left shoulder (principal)
CPT/HCPCS: 97110; 97140; 97161; 97530

== ENCOUNTER 2025-04-27 14:00 | Outpatient (RCR) | payer MEDICARE, SELFPAY ==
--- NOTE | 2025-01-31 13:57 | HP.PTEVAL_ITS ---
Patient's Visit Information Visit Information Visit Information: DOM BOSWELL is a 74 year old F referred to Physical Therapy by Dr. Twan Man DO with a diagnosis of LOW BACK PAIN. Date of Evaluation: 01/30/25 Physical Therapist: Minna Turner PT, Cert MDT Visit Plan Frequency: 2x /Week Duration: 4-6 Weeks Plan: *NO BENDING OR TWISTING. NO KNEE TO CHEST OR LOWER TRUNK ROTATION* US TO R LOWER THORACIC/UPPER LUMBAR TENDER AREAS X 6-8 TREATMENTS. MH NEEDED. Keep exercises in comfortable range and intensity. Gait training with least AD to promote improved mobility on level surfaces and up and down steps. Neutral Spine Core Stability Exercises and Pia LE Hip Flexor, Hamstring and Calf Stretching to help reduce stress to the Lumbar Spine with all Daily Activities. Pia LE Strengthening. Instruction in Proper Posture Control, Body Mechanics, and Appropriate Activity Modifications. HEP Instruction. Subjective Subjective: Work/Leisure: RETIRED Present symptoms: PATIENT REPORTS SHE IS HERE FOR PIA LOW BACK PAIN R>LEFT AND R HIP PAIN (INCLUDING GROIN). PATIENT REPORTS SHE ALSO HAS RESTLESS LEG SYNDROME AND NEUROPATHY IN HER FEET. Present since: CHRONIC BUT STARTING GETTING WORSE IN AUG 2024. Pain Scale: WORST 10/10 LEAST 2/10 Currently: 4/10 Is it getting better, worse or staying the same: STAYING THE SAME Commenced as a result of: NO APPARENT REASON OTHER THAN THE COLD. Worse: SITTING, STANDING AND WALKING. Better: LYING ON BACK. USING A CART IN THE STORE TO WALK HELPS BUT STILL DIFFICULT TO SHOP. Disturbed sleep: YES Previous history/Previous treatment: PHYSICAL THERAPY WATER AND LAND PT. Treatment this episode: NONE Coughing/sneezing/straining: POSITIVE FOR INCREASED PAIN. Gait: THE OTHER DAY I CRAWLED INTO THE HOUSE BECAUSE I COULDN'T STAND UP. AND I'M NEVER REALLY SURE IF THIS R LEG IS GOING TO HOLD ME. PATIENT HER R KNEE GIVES OUT. H/O OF FALLS WITH LAST FALL BEING A COUPLE WEEKS AGO IN HER BEDROOM. STATES SHE TRIPPED ON THE CAT. SHE CAN'T REMEMBER THE LAST FALL BEFORE THAT BUT STATES SHE USUALLY FALLS IN THE HOUSE AND SHE USUALLY TRIPS. ALSO HAD A FALL MARCH OF 2024, HIT HEAD/EYE SOCKET AND THEO/DAMAGED EYE - SURGERY IS TOO RISKY BUT HAS HEAD HEADACHES EVER SINCE. Bowel or Bladder Dysfunction: BLADDER DYSFUNCTION. WEARING DEPENDS FOR UI. Unexplained weight loss: NO Imaging: NO PMH/Recent major surgery: NIDDM, HTN, FIBROMYALGIA, INSOMNIA, H/O BREAST CANCER, HYPOTHYROIDISM, CHRONIC NECK PAIN, MIGRAINES. OTHER: PATIENT REPORTS SHE WANTS TO GET MORE ACTIVE BUT THE MORE SHE MOVES THE MORE IT HURTS Objective Objective: Sitting/Standing Posture: L ILIAC CREST HIGHER THAN R. INCREASED KYPHOSIS. ANTERIOR PELVIC TILT. Active Correction of posture: ABLE TO PARTIALLY CORRECT - INCREASES PAIN. Other Observations: UNABLE TO TRANSFER SIT TO STAND WITHOUT UE ASSIST BUT ABLE TO WITH ONE UE ASSIST. Sensory deficit: PIA LE LIGHT TOUCH SENSATION GROSSLY INTACT AND SYMMETRICAL EXCEPT HYPERSENSATIVITY REPORTED R LATERAL LOWER LEG COMPARED TO L. ROM deficit: PIA HIP, HS AND CALF TIGHTNESS Motor deficit: R HIP 4-/5, KNEE 4/5, ANKLE 5/5. L HIP 4/5, KNEE 5/5, ANKLE 5/5. Reflexes: 2+ PIA LE'S. Dural Signs: NEGATIVE PIA LE'S. Lumbar mvmt loss: flex - MARLON ext - MARLON R SG - MARLON L SG - MARLON THORACIC MVMT LOSS: R ROTATION - MAJOR - INCREASES R BACK PAIN - W L ROTATION - MAJOR - NE Core strength: POOR Palpation: R LOWER THORACIC AND ENTIRE LUMBAR PARASPINAL AND RIB REGION. TREATMENT: NEUROMUSCULAR REEDUCATION - RETRAINING OF MVMT AND POSTURE FOR SITTING, LYING AND STANDING ACTIVITIES. GAIT TRAIINING WITH ST CANE ON LEVEL SURFACES. FURTHER GAIT TRAINING NEEDED. Balance/Special Test Scores Oswestry Low Back Score: 26 Goals Goal 1:: DECREASE C/O BACK AND R HIP PAIN BY AT LEAST 50% TO EASE ADL'S. Goal Time Frame: 4-6 Weeks Goal 2:: IMPROVE PERSONAL CARE, LIFTING, WALKING, SITTING, STANDING, SLEEP, S OCIAL LIFE, TRAVEL AND HOMEMAKING FUNCTION. Goal Time Frame: 4-6 Weeks Goal 3:: INSTRUCT IN PROPHYLAXIS Goal Time Frame: 4-6 Weeks Rehabilitation Potential Physical Therapy Diagnosis: THORACIC AND R HIP PAIN, STIFFNESS AND WEAKNESS LIMITING GAIT AND ADL'S. Rehabilitation Potential: Fair Anticipated Interventions Patient/Client Instruction: Educate patient on: Condition, Plan of Care and Risk Factors For the Purpose of:: To improve self management Therapeutic Exercise to Include: Strength training, Body mechanics, Postural training, Flexibilty training, Gait and locomotor training, Neuromotor development and Dynamic Lumbar Stabilization For the Purpose of:: To decrease pain, To increase ROM, To improve muscle performance and motor function, To increase tolerance to activity/condition/position, To improve ability of physical actions for home/community/work/leisure, To improve gait and locomotor functions, To increase flexibility/ROM, To improve self management and To improve ability to perform tasks related to life management Thermo therapy (hot pack): Yes Ultrasound (thermal/non thermal): Yes For the Purpose of:: To decrease pain and To improve nutrient delivery to tissue Text: Thank you for the opportunity to evaluate your patient. For Medicare and Medicare HMO plans, please review the plan of care and approve it. It will need to be FAXED BACK to us at [phone] for Medicare purposes. For Medicare only, by signing this I certify the plan of care. Please let me know if there are questions or concerns regarding this plan of care. Physician Signature: Date:
--- NOTE | 2025-03-20 09:41 | HP.PTREVAL_ITS ---
Re-Evaluation Intro: Dr. Twan Man, DO, It has been my pleasure to treat DOM BOSWELL over the last 12 visits for LOW BACK PAIN. Please see the progress note below for an update on the physical therapy plan of care! Subjective Subjective: PATIENT REPORTS 7/10 LOW BACK PAIN LAST NIGHT AFTER PROLONGED STANDING (15-20 MIN) AND WALKING (3 BLOCKS) TO GET IPAD FIXED. (DESPITE THE PAIN PATIENT REPORTS SHE WOULDN'T HAVE EVEN TRIED THIS PRIOR TO HAVING PT THIS EPIS ODE OF CARE). 5/10 LBP LEAVING PT WEDNESDAY. NO MORE THAN 3-4/10 LBP UNTIL YESTERDAY. MY POSTURE IS DEFINATELY BETTER AND I AM DEFINATELY LOOSER AND STRONGER OVER-ALL SINCE STARTING PT. PATIENT STATES SHE THINKS SHE OVER-DID IT BY STAYING AFTER PT AND DOING THE NUSTEP ON HER OWN THE LAST TWO VISITS. STATES SHE DECIDED TO TRY 15 MIN AT L-5 BECAUSE THAT IS WHAT SHE HAS DONE BEFORE AND THEN REALIZED IT WAS TOO MUCH. Objective Objective/Function: PATIENT WAS SEEN TODAY FOR RE-ASSESSMENT OF PROGRESS TOWARD THE SET PT GOALS AND THE NEED FOR FURTHER PHYSICAL THERAPY VS READINESS FOR DISCHARGE. UPON EXAM TODAY: GAIT - PATIENT AMBULATES INDEP'LY INTO PT WITH CANE WITH SHOES UNTIED. SHE STATES SHE WAS RUNNING LATE NOT HAVING TIME TO TIE HER SHOES. ALSO STATES SHE CAN'T GET THE HANG OF THE CANE AND WALKS BETTER WITHOUT IT. THIS PT AGREES. PATIENT IS VERY ROBOTIC WITH THE CANE AND UNABLE TO COORDINATE A SMOOTH GAIT PATTERN WITH THE CANE. DUE TO HER PROGRESS AT THIS POINT SHE REALLY IS BETTER WITHOUT THE CANE. IF SHE EXPERIENCES LOSS OF BALANCE A ROLLATOR OR CANE MAY NEED TO BE CONSIDERED DUE TO DIFFICULTY COORDINATING WITH CANE. PATIENT IS STILL UNABLE TO TRANSFER SIT TO STAND WITHOUT UE ASSIST BUT EASILY ABLE TO WITH ONE UE ASSIST NOW. Sensory deficit: PIA LE LIGHT TOUCH SENSATION GROSSLY INTACT AND SYMMETRICAL TODAY. ROM deficit: PIA HIP, HS AND CALF TIGHTNESS Motor deficit: PIA LE'S 5/5 WITH MMT'ING EXCEPT R HIP 4/5. Dural Signs: NEGATIVE PIA LE'S. Lumbar mvmt loss: flex - MOD ext - MARLON R SG - MARLON L SG - MARLON PATIENT C/O INCREASED LBP WITH LUMBAR ROM TESTING ALL PLANES EXCEPT EXTENSION BUT SHE REALLY DOESN'T HAVE ANY SIGNIFICANT LUMBAR EXTENSION MVMT. THORACIC MVMT LOSS: R ROTATION - MAJOR - INCREASES R BACK PAIN - NW L ROTATION - MAJOR - NE Core strength: POOR Palpation: R LOWER THORACIC AND ENTIRE LUMBAR PARASPINAL AND RIB REGION. Plan Plan Plan: CONT 2X'S A WK X 8-12 VISITS: CONTINUE TO MIINIMIZE BENDING, LIFTING AND TWISTING BUT MAY BEGIN GENTLE SKTC AND LTR IN LYING. IF RESPONDS WELL RE-INSTRUCT IN PROPER BODY MECHANICS FOR BENDING AND LIFTING AND RECOMMEND SLOW RETURN TO NORMAL ADL'S TOLERATED. US TO R LOWER THORACIC/UPPER LUMBAR TENDER AREAS X 6-8 TREATMENTS. MH NEEDED. Keep exercises in comfortable range and intensity. Gait training with least AD to promote improved mobility on level surfaces and up and down steps. Neutral Spine Core Stability Exercises and Pia LE Hip Flexor, Hamstring and Calf Stretching to help reduce stress to the Lumbar Spine with all Daily Activities. Pia LE Strengthening. Instruction in Proper Posture Control, Body Mechanics, and Appropriate Activity Modifications. HEP Instruction. Balance/Gait/Functional tests Balance/Special Test Scores Oswestry Low Back Score: 24 Goals Goals Goal 1:: DECREASE C/O BACK AND R HIP PAIN BY AT LEAST 50% TO EASE ADL'S. Goal Time Frame: 4-6 Weeks Goal Progress: Progressing Goal 2:: IMPROVE PERSONAL CARE, LIFTING, WALKING, SITTING, STANDING, SLEEP, SOCIAL LIFE, TRAVEL AND HOMEMAKING FUNCTION. Goal Time Frame: 4-6 Weeks Goal Progress: Progressing Goal 3:: INSTRUCT IN PROPHYLAXIS Goal Time Frame: 4-6 Weeks Goal Progress: Progressing Anticipated Interventions Anticipated Interventions Patient/Client Instruction: Educate patient on: Condition, Plan of Care and Risk Factors For the Purpose of:: To improve self management Therapeutic Exercise to Include: Strength training, Body mechanics, Postural training, Flexibilty training, Gait and locomotor training, Neuromotor development and Dynamic Lumbar Stabilization For the Purpose of:: To decrease pain, To increase ROM, To improve muscle performance and motor function, To increase tolerance to activity/condition/position, To improve ability of physical actions for home/community/work/leisure, To improve gait and locomotor functions, To increase flexibility/ROM, To improve self management and To improve ability to perform tasks related to life management Thermo therapy (hot pack): Yes Ultrasound (thermal/non thermal): Yes For the Purpose of:: To decrease pain and To improve nutrient delivery to tissue Re-Evaluation Ending Re-evaluation ending: Please do not hesitate to contact me at [phone] by phone or Fax: if you have questions or concerns regarding this new plan of care! Sincerely, Minna Turner PT, Cert MDT
--- NOTE | 2025-04-27 15:08 | HP.PTDCSUM_ITS ---
Discharge Summary D/C summary: It has been my pleasure to treat DOM BOSWELL referred by Dr. Twan Man DO, with the diagnosis of LOW BACK PAIN for a total of 23 visit(s). Discharge Date: 04/27/25 Please see the following information for a summary of their discharge status. Subjective Subjective: PATIENT REPORTS HER LOW BACK PAIN IS RANGING 2/10 TO 4/10 WITH OCCASIONALLY SHOOTING TO 8/10. SHE REPORTS SHE IS WALKING MORE UPRIGHT AND THAT IS A POSITIVE. SHE REPORTS SHE HAS CONTINUED TO USE THE CANE BECAUSE SHE FEELS MORE SAFE/STABLE WITH IT. DID HAVE A FALL 04/15/25 - STATES SHE WAS STANDING HOLDING THINGS IN HER HANDS WITHOUT HER CANE AND TRIED TO BALANCE ON ONE FOOT WHILE POINTING WITH THE OTHER FOOT AND FELL OVER BACKWARDS. SHE REPORTS SHE REPORTS IT INCREASED HER BACK PAIN, BRUISED AND SCRAPED HER LEFT ELBOW AND IT SWELLED BUT DIDN'T WANT OR FEEL THE NEED TO SEE A DOCTOR. PATIENT REPORTS THAT BY THE TIME SHE GETS HOME ON THE DAYS OF PT SHE HAS MORE PAIN AND THE INCREASED PAIN GRADUALLY GETS BETTER BUT LASTS INTO THE NEXT DAY. STATES SHE STILL CAN'T GET HER LEFT LEG INTO THE CAR WITHOUT USING HER HANDS. STATES SHE CAN GO UP AND DOWN STEPS WITH ONE HR RECIPROCALLY ON A VERY GOOD DAY BUT TYPICALLY HAS TO GO ONE STEP AT A TIME AND REALLY DEPENDENT ON THE HR. 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 Pain Bilat LB: Pain Intensity (Out of 10): 2 Overall Improvement % Improvement: 65 Objective Objective/Function: PATIENT WAS SEEN TODAY FOR RE-ASSESSMENT OF PROGRESS TOWARD THE SET PT GOALS AND THE NEED FOR FURTHER PHYSICAL THERAPY VS READINESS FOR DISCHARGE. PATIENT IS NO LONGER PROGRESSING AND ACTUALLY REPORTING INCREASED PAIN POST TREATMENTS NOW. PHYSICIAN RE-ASSESSMENT RECOMMENDED. UPON EXAM TODAY: GAIT - PATIENT AMBULATES INDEP'LY INTO PT WITH CANE. DUE TO HER PROGRESS AT THIS POINT SHE REALLY IS BETTER WITHOUT THE CANE. PATIENT IS STILL UNABLE TO TRANSFER SIT TO STAND WITHOUT UE ASSIST BUT EASILY ABLE TO WITH ONE UE ASSIST NOW. Sensory deficit: PIA LE LIGHT TOUCH SENSATION GROSSLY INTACT AND SYMMETRICAL TODAY. ROM deficit: PIA HIP, HS AND CALF TIGHTNESS Motor deficit: PIA LE'S 5/5 WITH MMT'ING EXCEPT PIA HIPS GROSSLY 4/5. Dural Signs: NEGATIVE PIA LE'S. Lumbar mvmt loss: flex - MOD ext - MARLON R SG - MARLON L SG - MARLON PATIENT C/O INCREASED LBP WITH LUMBAR ROM TESTING ALL PLANES EXCEPT EXTENSION BUT SHE REALLY DOESN'T HAVE ANY SIGNIFICANT LUMBAR EXTENSION MVMT. THORACIC MVMT LOSS: R ROTATION - MAJOR - INCREASES R BACK PAIN - NW L ROTATION - MAJOR - NE LUMBAR ROM TESTING IN STANDING ABOVE AND T/S ROM TESTED IN SITTING ABOVE. LUMBAR FLEXION AND ROTATION IN LYING ALSO BOTH OF WHICH ALSO CAUSED C/O LOW BACK PAIN. Core strength: POOR Palpation: TENDERNESS WITH PALPATION OF ENTIRE LUMBAR REGION R>L. Goals Goal 1:: DECREASE C/O BACK AND R HIP PAIN BY AT LEAST 50% TO EASE ADL'S. Goal Progress: Not Progressing Goal 2:: IMPROVE PERSONAL CARE, LIFTING, WALKING, SITTING, STANDING, SLEEP, SOCIAL LIFE, TRAVEL AND HOMEMAKING FUNCTION. Goal Progress: Not Progressing Goal 3:: INSTRUCT IN PROPHYLAXIS Goal Progress: Not Progressing Plan Plan: D/C DUE TO LACK OF PROGRESS/PLATEAUING. D/C Information d/c sentence: If there are questions or concerns regarding this patient's physical therapy, please feel free to call me at [phone]. Thank you for the referral of this patient. Sincerely, Minna Turner, PT, Cert MDT Balance/Gait/Functional tests Balance/Special Test Scores Oswestry Low Back Score: 26 Improvement % Improvement: 65
== END 2025-04-27 19:00 | disposition home or self-care (01) ==
LOC: PT 14:00
DX: M54.2 Cervicalgia (principal); R51.9 Headache, unspecified; M54.50 Low back pain, unspecified
CPT/HCPCS: 97035; 97110; 97112; 97116; 97162; 97530